=== PATIENT | female | born 1945 | race Caucasian/White ===

== ENCOUNTER 2017-05-28 07:12 | Outpatient (CLI) | payer MEDICARE | END 2017-05-28 07:13 | disposition home or self-care (01) | LOC: BICMAMMO 07:12 | PROVIDERS: ATTEND Internal Medicine | DX: Z12.31 Encounter for screening mammogram for malignant neoplasm of breast (principal) | CPT/HCPCS: 77063; G0202; 77067 ==

== ENCOUNTER 2018-05-29 09:36 | Outpatient (CLI) | payer MEDICARE | END 2018-05-29 09:37 | disposition home or self-care (01) | LOC: BICMAMMO 09:36 | PROVIDERS: ATTEND Internal Medicine | DX: Z12.31 Encounter for screening mammogram for malignant neoplasm of breast (principal); Z80.3 Family history of malignant neoplasm of breast | CPT/HCPCS: 77063; 77067 ==

== ENCOUNTER 2019-06-03 09:45 | Outpatient (CLI) | payer MEDICARE ==
--- NOTE | 2019-06-03 10:25 | MMO ---
Bilateral MAMMO Bilat Screen [facility]. CLINICAL HISTORY: Patient is 74 years old and is seen for screening. The patient has the following family history of breast cancer: maternal aunt. The patient has no personal history of cancer. VIEWS: The views performed were: bilateral craniocaudal with tomosynthesis and bilateral mediolateral oblique with tomosynthesis. FILMS COMPARED: The present examination has been compared to prior imaging studies performed at [facility] on 05/22/2015, 05/23/2016, 05/28/2017 and 05/29/2018. This study has been interpreted with the assistance of computer-aided detection. MAMMOGRAM FINDINGS: There are scattered fibroglandular densities. There are stable benign appearing calcifications seen in both breasts. There are no suspicious masses, suspicious calcifications, or new areas of architectural distortion. IMPRESSION: THERE IS NO MAMMOGRAPHIC EVIDENCE OF MALIGNANCY. A ROUTINE FOLLOW-UP MAMMOGRAM IN 1 YEAR IS RECOMMENDED. THE RESULTS OF THIS EXAM WERE SENT TO THE PATIENT. ACR BI-RADS Category 2 - Benign finding MAMMOGRAPHY NOTE: 1. A negative mammogram report should not delay a biopsy if a dominant of clinically suspicious mass is present. 2. Approximately 10% to 15% of breast cancers are not detected by mammography. 3. Adenosis and dense breasts may obscure an underlying neoplasm. Reported by: SUSHMA HARPER MD Electonically Signed: [id number]
== END 2019-06-03 09:46 | disposition home or self-care (01) ==
LOC: BICMAMMO 09:45
PROVIDERS: ATTEND Internal Medicine
DX: Z12.31 Encounter for screening mammogram for malignant neoplasm of breast (principal); Z80.3 Family history of malignant neoplasm of breast
CPT/HCPCS: 77063; 77067

== ENCOUNTER 2020-01-04 16:57 | Inpatient (IN) | payer MEDICARE, OTHER ==
[~2020-01-04 16:57] MED LIST: Iopamidol 370 76% 100 ML VIAL ONE
--- NOTE | 2020-01-04 17:45 | RAD ---
Exam: Chest one view HISTORY:Back pain Comparison: None FINDINGS: Cardiac silhouette: Normal Aorta: Unremarkable Pulmonary vessels: Normal Costophrenic angles: Clear LUNGS: No masses or consolidation. Pneumothorax: None Osseous abnormalities: None IMPRESSION: No acute cardiopulmonary process.
[2020-01-04 18:12] LABS: #Lymphocytes 1.3 thou/uL (1.20-3.40); #Monocytes 0.6 thou/uL (0.11-0.59); #Neutrophils 10.1 thou/uL (1.40-6.50); %Basophils 0.1 % (0.0-1.0); %Eosinophils 0.3 % (0.0-10.0); %Monocytes 5.2 % (0.0-10.0); %Neutrophils 83.5 % (42.0-75.0); Hemoglobin 12.8 g/dL (12.0-16.0); Mean Corpuscular Hemoglobin 30.3 pg (27.0-31.0); Mean Corpuscular Volume 89.1 fL (78.0-98.0); Mean Platelet Volume 9.9 fL (7.4-10.4); Platelet Count 196 thou/uL (130-400); RBC Distribution Width 12.4 % (11.5-14.5); Red Blood Cell (RBC) Count 4.22 mill/uL (4.20-5.40); White Blood Cell (WBC) Count 12.1 thou/uL (4.8-10.8)
[2020-01-04 18:18] LABS: INR-International Normal Ratio 1.1; PTT 29.1 sec (22.9-36.1); Prothrombin Time 14.3 sec (12.0-14.7)
[2020-01-04 18:20] LABS: D-Dimer Test Less than 0.27 *mcg/mL (0.27-0.43)
--- NOTE | 2020-01-04 18:33 | CT ---
CT ANGIO OF CHEST AND ABDOMEN PERFORMED WITH INTRAVENOUS CONTRAST ENHANCEMENT WITH 3D RECONSTRUCTIONS : 01/04/20 HISTORY: Chest and back pain. New murmur. This was done per the aortic dissection protocol. The lungs are clear of any infiltrative process. There is evidence for some air trapping. Motion present on this examination. The pulmonary arteries are fairly well opacified. I see no eviden ce for any central pulmonary embolus. The thoracic aorta is normal in caliber. There is no dissection . CT ANGIO OF ABDOMEN: There is some fatty change to the liver. Focal area of peripheral enhancement probably related to sma ll arteriovenous area of shunting in the right lobe. The spleen, pancreas and gallbladder regions mita ear unremarkable. Right and left adrenal glands and right and left kidneys are normal. No free fluid. No bowel wall fin dings. There are some diverticular changes. The appendix region appears unremarkable. The thoracic aorta is normal in caliber. No dissection. IMPRESSION: No evidence of aortic aneurysm or dissection. POS: [facility] [place]
[2020-01-04 18:34] LABS: ALT (SGPT) 31 U/L (8-55); AST (SGOT) 27 U/L (5-34); Alkaline Phosphatase 74 U/L (40-110); Anion Gap 18 mmol/L (10-20); BUN (Urea Nitrogen) 19 mg/dL (9.8-20.1); Bilirubin, Total 0.6 mg/dL (0.2-1.2); Calc. Creatinine Clearance 0 mL/min (70-130); Calcium 9.1 mg/dL (7.8-10.44); Carbon Dioxide 21 mmol/L (23-31); Chloride 99 mmol/L (98-107); Estimated GFR-MDRD 58; Globulin 1.9 g/dL (2.4-3.5); Glucose 227 mg/dL (83-110); Protein, Total 5.9 g/dL (6.0-8.3); Sodium 135 mmol/L (136-145)
[2020-01-04 19:28] LABS: Bilirubin Negative (Negative); Blood, Urine Trace (Negative); Clarity Clear (Clear); Glucose, Urine (Dipstick) Normal (Negative); Ketone, Urine 20 mg/dL (Negative); Leukocyte 75 Leu/uL (Negative); Nitrite Negative (Negative); Protein, Urine (Dipstick) 10 mg/dL (Neg-Trace); Squamous Epithelial 0-3 HPF (0-3); Urobilinogen Normal mg/dL (Less than 2); pH, Urine 5.5 (5.0-9.0)
[2020-01-04 19:38] LABS: Specific Gravity, Urine 1.053 (1.002-1.036)
[2020-01-04 19:39] LABS: Bacteria/HPF Rare-Few HPF (None Seen)
[2020-01-04] MEDS ORDERED: cefTRIAXone\\ROCEPHIN 2 GM VIAL ONE (20:20)
[2020-01-04] MEDS ORDERED: Potassium Chloride 20 MEQ TAB ONE ×2 (20:21→20:22)
[2020-01-04 21:12] LABS: Troponin I 0.033 ng/mL (< 0.028)
[2020-01-04 21:14] LABS: Lactic Acid 2.3 mmol/L (0.5-2.2)
[2020-01-04] MEDS ORDERED: Acetaminophen 325 MG TAB PO PRN (21:50)
[2020-01-04] MEDS ORDERED: Ondansetron PF 4 MG/2 ML Vial IVP PRN (21:51)
[2020-01-04] MEDS ORDERED: Promethazine HCl 12.5 MG in Sodium Chloride 0.9% 50 ML IVPB PRN (21:51)
[2020-01-04] MEDS ORDERED: Guaifenesin DM 100-10/5 ML UDCUP PO PRN (21:51)
[2020-01-04] MEDS ORDERED: HYDROcodone/Acetaminophen 5/325 mg Tablet PO PRN (21:51)
[2020-01-04] MEDS ORDERED: Bisacodyl 5 MG TAB PO PRN (21:52)
--- NOTE | 2020-01-04 21:57 | PDOC.HHP ---
Hospitalist HPI - History of Present Illness Palpitations History of Present Illness: Patient is a 74 year old female with PMH HTN, DM, anemia, HLD who presents to the ED with palpitations, back pain x 3 days. These symptoms have occurred mostly at night and have woken her up, she denies chest pain/orthopnea, PND, shortness of breath. She went to PCP office and was found to have sinus tachycardia. She denies history of cardiac disease or cardiac workup. In ED, lactic acid 4, lowered to 2 on rechec. TnI 0.33. Holosystolic murmur appreciated by ED. CTA chest without aortic dissection. UA suspicious for UTI. Patient was covid swabbed for sepsis screen. He recieved 325 asa. patient to be admitted for tachycardia and presumed UTI. Hospitalist ROS - Review of Systems Constitutional: denies: fever, chills, sweats, weakness, malaise, other Eyes: denies: pain, vision change, conjunctivae inflammation, eyelid inflammation, redness, other ENT: denies: ear pain, ear discharge, nose pain, nose discharge, nose congestion , mouth pain, mouth swelling, throat pain, throat swelling, other Respiratory: denies: cough, dry, shortness of breath, hemoptysis, SOB with excertion, pleuritic pain, sputum, wheezing, other Cardiovascular: reports: palpitations. denies: chest pain, orthopnea, paroxysmal noc. dyspnea, edema, light headedness, other Gastrointestinal: denies: nausea, vomiting, abdominal pain, diarrhea, constipation, melena, hematochezia, other Genitourinary: denies: dysuria, frequency, incontinence, hematuria, retention, other Musculoskeletal: denies: neck pain, shoulder pain, arm pain, back pain, hand pain, leg pain, foot pain, other Skin: denies: rash, lesions, timmy, bruising, other Neurological: denies: weakness, numbness, incoordination, change in speech, confusion, seizures, other All other systems reviewed; all pertinent +/- noted in HPI/Subj - Medication Medications: metFORMIN FriJan 04, 2020 18:05 CHAVEZ Valdez Hannah TABLET : Strength - 500 mg : ORAL Patient Dose: 1000 mg Oral 2 times a day. pioglitazone FriJan 04, 2020 18:05 CHAVEZ Valdez Hannah tablet : Strength - 15 mg : ORAL Patient Dose: 1 tab(s) Oral once a day. glimepiride FriJan 04, 2020 18:06 CHAVEZ Valdez Hannah tablet : Strength - 2 mg : ORAL Patient Dose: 1 tab(s) Oral once a day. lisinopril-hydrochlorothiazide FriJan 04, 2020 18:06 CHAVEZ Valdez Hannah tablet : Strength - 20 mg-12.5 mg : ORAL Patient Dose: 1 tab(s) Oral once a day. amLODIPine FriJan 04, 2020 18:07 CHAVEZ Valdez Hannah tablet : Strength - 5 mg : ORAL Patient Dose: 1 tab(s) Oral once a day. iron 325 mg (65 mg iron) tablet FriJan 04, 2020 18:07 CHAVEZ Valdez Hannah tablet : Strength - 325 mg (65 mg iron) : ORAL Patient Dose: 1 tab(s) Oral once a day. atorvastatin FriJan 04, 2020 18:08 CHAVEZ Valdez Hannah tablet : Strength - 20 mg : ORAL Patient Dose: 1 tab(s) Oral once a day. Citracal + D3 (calcium phos) FriJan 04, 2020 18:08 CHAVEZ Valdez Hannah tablet,chewable : Strength - 250 mg calcium-500 unit : ORAL Patient Dose: 1 tab(s) Oral once a day (in the morning). Centrum Silver Women FriJan 04, 2020 18:09 CHAVEZ Valdez Hannah tablet : Strength - 8 mg iron-400 mcg-300 mcg : ORAL Patient Dose: 1 tab(s) Oral once a day (in the morning). MegaRed Hmuhj-Encjp-9 FriJan 04, 2020 18:09 CHAVEZ Valdez Hannah capsule : Strength - 300 mg : ORAL Patient Dose: 1 cap(s) Oral once a day (in the evening). B Complex-Vitamin B12 FriJan 04, 2020 18:10 CHAVEZ Valdez Hannah tablet : ORAL Patient Dose: 1 tab(s) Oral once a day (in the morning). aspirin oral FriJan 04, 2020 18:10 CHAVEZ Valdez Hannah TABLET : Strength - 81 mg : ORAL Patient Dose: 81 mg Oral once a day. Hospitalist History - Past Medical History Other Medical History: HTN, DM, anemia, HLD - Past Surgical History Past Surgical History: reports: no pertinent history - Family History Family History: reports: no pertinent history - Social History Smoking Status: Never smoker Alcohol: reports: None - Exam General Appearance: NAD, awake alert Eye: PERRL, anicteric sclera ENT: normocephalic atraumatic, no oropharyngeal lesions, moist mucosa Neck: supple, symmetric, no JVD, no thyromegaly, no lymphadenopathy, no carotid bruit Heart: RRR, no gallops, no rubs, normal peripheral pulses, murmur present Heart - other findings: holosystolic murmur Respiratory: CTAB, no wheezes, no rales, no ronchi, normal chest expansion, no tachypnea, normal percussion Gastrointestinal: soft, non-tender, non-distended, normal bowel sounds, no palpable masses, no hepatomegaly, no splenomegaly, no bruit Extremities: no cyanosis, no clubbing, no edema Skin: normal turgor, no lesions, no rashes Neurological: cranial nerve grossly intact, normal sensation to touch, no weakness, no focal deficits, no new deficit Musculoskeletal: normal tone, normal strength, no muscle wasting Psychiatric: normal affect, normal behavior, A&O x 3 Hospitalist Results - Labs Result Diagrams: 01/04/20 18:01 01/04/20 18:01 Lab results: WBC 12.1 thou/uL (4.8-10.8) H 01/04/20 18:01 Hgb 12.8 g/dL (12.0-16.0) 01/04/20 18:01 Hct 37.6 % (36.0-47.0) 01/04/20 18:01 MCV 89.1 fL (78.0-98.0) 01/04/20 18:01 Plt Count 196 thou/uL (130-400) 01/04/20 18:01 Neutrophils % 83.5 % (42.0-75.0) H 01/04/20 18:01 Sodium 135 mmol/L (136-145) L 01/04/20 18:01 Potassium 3.0 mmol/L (3.5-5.1) L 01/04/20 18:01 Chloride 99 mmol/L (98-107) 01/04/20 18:01 Carbon Dioxide 21 mmol/L (23-31) L 01/04/20 18:01 BUN 19 mg/dL (9.8-20.1) 01/04/20 18:01 Creatinine 0.94 mg/dL (0.6-1.1) 01/04/20 18:01 Glucose 227 mg/dL (83-110) H 01/04/20 18:01 Lactic Acid 2.3 mmol/L (0.5-2.2) H 01/04/20 20:52 Calcium 9.1 mg/dL (7.8-10.44) 01/04/20 18:01 Total Bilirubin 0.6 mg/dL (0.2-1.2) 01/04/20 18:01 AST 27 U/L (5-34) 01/04/20 18:01 ALT 31 U/L (8-55) 01/04/20 18:01 Alkaline Phosphatase 74 U/L (40-110) 01/04/20 18:01 Troponin I 0.033 ng/mL (< 0.028) H 01/04/20 20:36 B-Natriuretic Peptide 43.7 pg/mL (0-100) 01/04/20 18:01 Serum Total Protein 5.9 g/dL (6.0-8.3) L 01/04/20 18:01 Albumin 4.0 g/dL (3.4-4.8) 01/04/20 18:01 Urine Ketones 20 mg/dL (Negative) A 01/04/20 18:52 Urine Blood Trace (Negative) A 01/04/20 18:52 Urine Nitrite Negative (Negative) 01/04/20 18:52 Ur Leukocyte Esterase 75 Dennis/uL (Negative) A 01/04/20 18:52 Urine RBC 4-6 HPF (0-3) A 01/04/20 18:52 Urine WBC 4-6 HPF (0-3) A 01/04/20 18:52 Ur Squamous Epith Cells 0-3 HPF (0-3) 01/04/20 18:52 Urine Bacteria Rare-Few HPF (None Seen) 01/04/20 18:52 Additional comment: VITAL SIGNS FriJan 04, 2020 21:00 CHAVEZ Valdez, Gillian BP: 180/84 MAP: 116 Pulse: 111 Resp: 10 O2 sat: 98 on (Room Air) Time: 01/04/2020 21:00. - EKG Interpretation EKG: sinus tachycardia, rate 125, RBBB, no dropped beats Hospitalist H&P A/P - Plan Plan: Patient is a 74 year old female with PMH HTN, DM, anemia, HLD who presents to the ED with palpitations, back pain x 3 days. # UTI with sepsis - admit to floor, trend lactic acid, hold IVF bolus due to HTN , start ceftriaxone, follow cultures # HTN - continue OSCAR/HCTZ, continue norvasc # sinus tachycardia - may be SVT or arrhtyhmia vs sinus tachycardia due to infection (UTI?) will treat UTI and provide PRN lebetalol and order echocardiogram and consult cardiology # HLD - continue statin, aspirin # DM - SSI, hold PO DM medications # hypokalemia - trend BMP, replete PRN, check Mg # DVT ppx # GI ppx Full code
[2020-01-04 22:55] VITALS: BMI 36.6
[2020-01-04] MEDS ORDERED: Sodium Chloride 0.9% 10 ML ONE (23:31)
[2020-01-04] MEDS: Labetalol HCl 100 MG/20 ML VIAL SLOW IVP PRN (23:37)
[2020-01-04] MEDS ORDERED: HumaLOG 300 UNITS/3 ML VIAL SC PRN (23:58)
[2020-01-04] MEDS ORDERED: Dextrose 5% in Water 1,000 ML IV PRN (23:58)
[2020-01-04] MEDS ORDERED: hydrALAZINE 20 MG/ML VIAL SLOW IVP PRN (23:58)
[2020-01-04] MEDS ORDERED: Dextrose 50% Abboject 50 ML SYRINGE SLOW IVP PRN (23:58)
[2020-01-05 00:14] LABS: Troponin I 0.039 ng/mL (< 0.028)
[2020-01-05] MEDS: Potassium Chloride 20 MEQ in Premix Bag 1 BAG IVPB SCH ×2 (01:12→03:20)
[2020-01-05 04:41] LABS: Anion Gap 13 mmol/L (10-20); BUN (Urea Nitrogen) 15 mg/dL (9.8-20.1); Calc. Creatinine Clearance 99 mL/min (70-130); Calcium 8.7 mg/dL (7.8-10.44); Carbon Dioxide 22 mmol/L (23-31); Chloride 105 mmol/L (98-107); Estimated GFR-MDRD 73; Glucose 216 mg/dL (83-110); Magnesium 1.6 mg/dL (1.6-2.6); Potassium 3.7 mmol/L (3.5-5.1); Sodium 136 mmol/L (136-145)
[2020-01-05 04:43] LABS: Troponin I 0.051 ng/mL (< 0.028)
[2020-01-05] MEDS: Famotidine 20 MG TAB PO SCH ×2 (07:27→21:39)
[2020-01-05] MEDS: Lisinopril/Hydrochlorothiazide 20 mg/12.5 mg Tablet PO SCH (07:27)
[2020-01-05] MEDS: Enoxaparin Sodium 40 MG/0.4 ML SYRINGE SC SCH (07:28)
[2020-01-05] MEDS: metFORMIN 500 MG TAB PO SCH ×5 (07:28→17:53)
[2020-01-05] MEDS: Polyethylene Glycol 3350 17 GM Packet PO SCH (07:28)
[2020-01-05] MEDS ORDERED: Amlodipine 5 MG TAB PO SCH ×4 (09:00→10:30)
[2020-01-05 10:25] LABS: Troponin I 0.038 ng/mL (< 0.028)
--- NOTE | 2020-01-05 10:38 | CON ---
DATE OF CONSULTATION: HISTORY OF PRESENT ILLNESS: Roma Connor is a 74-year-old woman, who presents for evaluation of back discomfort and palpitations. The patient states approximately 4 days ago she started having palpitations. The patient subsequently developed midback, lower back discomfort. The patient went to see her physician, noted to be markedly tachycardic. She was sent to the emergency room for further evaluation. The patient denies having any chest pain or dyspnea. She denies having any fevers or chills. The patient has several cardiac risk factors including diabetes mellitus, hypertension, hypercholesteremia, and a family history of coronary artery disease. PAST MEDICAL HISTORY: 1. Diabetes mellitus. 2. Hypertension. 3. Dyslipidemia. 4. Elevated liver function tests. PAST SURGICAL HISTORY: Cataract surgery. SOCIAL HISTORY: Nonsmoker. MEDICATIONS: 1. Amlodipine 5 daily. 2. Lipitor 20 at bedtime. 3. Aspirin 81 daily. 4. Actos 15 daily. 5. Lisinopril/HCTZ 20/12.5 daily. 6. Amaryl 2 daily. ALLERGIES: NO KNOWN DRUG ALLERGIES. FAMILY HISTORY: No strong family history of heart disease. REVIEW OF SYSTEMS: Ten-point system is otherwise unremarkable. No history of easy bruising or bleeding or bright-red blood per rectum. PHYSICAL EXAMINATION: GENERAL: Obese woman, in no acute distress. VITAL SIGNS: Blood pressure 155/72. NECK: No jugular venous distention. LUNGS: Clear to auscultation. HEART: Regular rate and rhythm. Normal S1, S2 with a 2/6 systolic murmur. ABDOMEN: Distended. EXTREMITIES: No edema. VASCULAR: Radial pulses 2+. LABORATORY DATA: Sodium 136, potassium 3.7, chloride 105, bicarbonate 22, BUN 15, creatinine 0.77, glucose 216. Troponin 0.051. White blood cell count is 12.1, hemoglobin 12.8, hematocrit 37.6, platelets 196. INR was 1.1. EKG sinus tachycardia with a right bundle-branch block. IMPRESSION: 1. Sinus tachycardia. 2. Right bundle-branch block. 3. Hypertension. 4. Diabetes mellitus. 5. Dyslipidemia. 6. Obesity. 7. Urinary tract infection. PLAN: This patient presents with sinus tachycardia, back discomfort, and urinary tract infection. The patient's heart rate is much slower since she has been admitted to the hospital and been on IV antibiotics. From a cardiac standpoint , we will check the patient's echocardiogram. She had a CT scan, which ruled out aortic dissection or central pulmonary embolus. We will follow this patient with you through her hospitalization. Job ID: [id number] WALTER
[2020-01-05 12:01] LABS: SARS-CoV-2 MS2 Positive; SARS-CoV-2 N Gene Negative; SARS-CoV-2 S Gene Negative; SARS-CoV-2 by NAA Not Detected (NotDetected); SARS-CoV-2 orf1ab Negative
--- NOTE | 2020-01-05 17:26 | PDOC.HOSPP ---
- Subjective Encounter Date: 01/05/20 Encounter Time: 10:00 Subjective: Patient was seen for follow-up for sepsis. She reports feeling better. She reports occasional palpitations. She denies any nausea or vomiting. - Objective Vital Signs & Weight: Vital Signs (12 hours) Temp Pulse Resp BP Pulse Ox 01/05/20 11:17 78 01/05/20 11:06 98.4 F 78 12 162/75 H 98 01/05/20 07:19 98.2 F 80 17 155/72 H 98 Weight Weight 213 lb 6.4 oz I&O: 01/04/20 01/05/20 01/06/20 06:59 06:59 06:59 Intake Total 500 Output Total 1300 Balance -800 Result Diagrams: 01/04/20 18:01 01/05/20 04:05 Additional Labs: Accuchecks 01/05/20 01/05/20 01/04/20 11:03 05:58 22:28 POC Glucose 169 H 198 H 207 H Labs and MAR were reviewed by me. EKG Reviewed by me: Yes (Telemetry: Normal sinus rhythm) Hospitalist ROS - Review of Systems Respiratory: denies: cough, shortness of breath, SOB with excertion, pleuritic pain, wheezing Cardiovascular: denies: chest pain, palpitations, orthopnea, paroxysmal noc. dyspnea, edema, light headedness - Medication Medications: Active Medications Generic Name Dose Route Start Last Admin Trade Name Freq PRN Reason Stop Dose Admin Enoxaparin Sodium 40 mg 01/05/20 09:00 01/05/20 07:28 Lovenox SC 40 mg 0900 IVANA Administration Famotidine 20 mg 01/05/20 09:00 01/05/20 07:27 Pepcid PO 20 mg BID IVANA Administration Lisinopril/HCTZ 1 tab 01/05/20 09:00 01/05/20 07:27 Prinizide 20-12.5 PO 1 tab DAILY IVANA Administration Labetalol HCl 20 mg 01/04/20 21:50 01/04/20 23:37 Normodyne SLOW IVP 20 mg Q4H PRN Administration SBP GREATER THAN 160 Metformin HCl 1,000 mg 01/05/20 08:00 01/05/20 11:11 Glucophage PO 1,000 mg BID-WM IVANA Administration Polyethylene Glycol 17 gm 01/05/20 09:00 01/05/20 07:28 Miralax PO Not Given DAILY IVANA Sodium Chloride 10 ml 01/04/20 22:01 01/04/20 23:38 Flush - Normal Saline IVF 10 ml PRN PRN Administration Saline Flush - Exam General Appearance: awake alert Eye: anicteric sclera ENT: no oropharyngeal lesions Neck: supple Heart: RRR Respiratory: CTAB, no rales Gastrointestinal: soft, non-tender Extremities: no cyanosis Psychiatric: normal affect, normal behavior Hosp A/P - Plan #sepsis -patient is clinically improving # UTI -continue ceftriaxone and follow urine culture # HTN -monitor vital signs and titrate antihypertensives as needed # sinus tachycardia -Improved, likely due to sepsis. Appreciate cardiology service input. 2D echocardiogram pending. # HLD - continue statin # DM -continue Accu-Cheks and insulin sliding scale. # hypokalemia -resolved.
[2020-01-05] MEDS: Labetalol HCl 100 MG/20 ML VIAL SLOW IVP PRN (17:47)
[2020-01-05] MEDS ORDERED: Atorvastatin Calcium 20 MG TAB PO SCH (21:00)
[2020-01-05] MEDS ORDERED: Aspirin 81 mg Enteric Coated Tablet PO SCH (21:00)
[2020-01-05] MEDS ORDERED: cefTRIAXone\\ROCEPHIN 1 GM in Sodium Chloride 0.9% 100 ML IVPB SCH (22:00)
[2020-01-06 05:10] LABS: Anion Gap 12 mmol/L (10-20); BUN (Urea Nitrogen) 12 mg/dL (9.8-20.1); Calc. Creatinine Clearance 103 mL/min (70-130); Calcium 8.7 mg/dL (7.8-10.44); Carbon Dioxide 26 mmol/L (23-31); Chloride 105 mmol/L (98-107); Estimated GFR-MDRD 77; Glucose 160 mg/dL (83-110); Magnesium 1.6 mg/dL (1.6-2.6); Sodium 139 mmol/L (136-145)
[2020-01-06] MEDS ORDERED: Amlodipine 5 MG TAB PO SCH (09:00)
[2020-01-06 09:31] VITALS: TEMP 97.9
[2020-01-06] MEDS: metFORMIN 500 MG TAB PO SCH (09:32)
[2020-01-06] MEDS: Lisinopril/Hydrochlorothiazide 20 mg/12.5 mg Tablet PO SCH (09:33)
[2020-01-06] MEDS: Famotidine 20 MG TAB PO SCH (09:33)
[2020-01-06] MEDS: Polyethylene Glycol 3350 17 GM Packet PO SCH (09:34)
[2020-01-06] MEDS: Enoxaparin Sodium 40 MG/0.4 ML SYRINGE SC SCH (09:34)
[2020-01-06] MEDS ORDERED: Cefdinir 300 MG CAP PO SCH ×2 (09:45→21:00)
--- NOTE | 2020-01-06 11:14 | DIS ---
DATE OF ADMISSION: 01/04/2020 DATE OF DISCHARGE: 01/06/2020 PRIMARY CARE PROVIDER: Otto Loyola MD DISCHARGE DIAGNOSES: 1. Sepsis secondary to urinary tract infection. 2. COVID-19 test negative. 3. Sinus tachycardia. 4. Hypokalemia. 5. [id number]-[id number] elevation myocardial infarction, type 2. CONDITION OF THE PATIENT ON THE DAY OF DISCHARGE: Stable. I assessed Ms. Connor on the day of discharge. She denies any chest pain or shortness of breath. Vital signs are stable. S1 and S2 are heard, regular. Lungs are clear to auscultation bilaterally. CONSULTATIONS DURING THIS HOSPITALIZATION: Cardiology, Dr. Aly. DISCHARGE MEDICATIONS: She has been started on cefdinir 300 mg 2 times a day for 7 more days. Otherwise, no change was made to her pre-admission home medications. HOSPITAL COURSE: Ms. Connor is a pleasant 74-year-old lady who was admitted to [facility] for sepsis secondary to urinary tract infection. She also had elevated troponin. She was seen by Cardiology Service. She also had 2D echocardiogram which showed left ventricular ejection fraction of 60% to 65%, mildly dilated left atrium, normal left ventricular size, mild concentric left ventricular hypertrophy, impaired relaxation compatible with diastolic dysfunction, mild mitral regurgitation, and mild tricuspid regurgitation. She improved clinically. At the time of this dictation, preliminary urine culture was young culture, further incubation required. Preliminary blood cultures are negative. She has been advised to follow up with her primary care provider for final urine and blood culture reports. POST-ACUTE CARE FOLLOWUP: With primary care provider in 3 days and with Cardiology Service. ACTIVITY: No restrictions. DIET: Diabetic and heart healthy. DISCHARGE DESTINATION: Home. TIME SPENT: Total amount of time spent coordinating this discharge: 25 minutes. Job ID: [id number]
[2020-01-06 12:19] VITALS: BP 147/76
== END 2020-01-06 12:50 | disposition home or self-care (01) | DRG 871 ==
LOC: ERS 16:57 → 2NO 20:54
PROVIDERS: ADMIT Internal Medicine; ATTEND Internal Medicine
DX: A41.9 Sepsis, unspecified organism (principal); I21.A1 Myocardial infarction type 2; N39.0 Urinary tract infection, site not specified; Z20.828 Contact with and (suspected) exposure to other viral communicable diseases; E87.6 Hypokalemia; R00.0 Tachycardia, unspecified; I08.1 Rheumatic disorders of both mitral and tricuspid valves; E78.5 Hyperlipidemia, unspecified; E78.00 Pure hypercholesterolemia, unspecified; D64.9 Anemia, unspecified; E11.9 Type 2 diabetes mellitus without complications; E66.9 Obesity, unspecified; I10 Essential (primary) hypertension; I45.10 Unspecified right bundle-branch block; Z98.42 Cataract extraction status, left eye; Z98.41 Cataract extraction status, right eye; Z79.4 Long term (current) use of insulin; Z68.31 Body mass index [BMI] 31.0-31.9, adult
CPT/HCPCS: 36415; 36416; 71045; 71275; 72191; 74175; 80048; 80053; 81003; 81015; 83605; 83735; 83880; 84443; 84484; 85025; 85379; 85610; 85730; 87086; 87635; 93005; 93306; 94760; J0696; J1650; J3480; J3490; Q9967; U0003

== ENCOUNTER 2020-01-10 13:40 | Emergency (ER) | payer MEDICARE ==
--- NOTE | 2020-01-10 14:52 | RAD ---
EXAM: CHEST ONE VIEW HISTORY: Rapid heart rate and high blood pressure for one week. COMPARISON: 12/27/2019 FINDINGS: The cardiac silhouette and pulmonary vasculature is within normal limits. The lungs are clear. The os seous structures are intact. Vascular calcifications are seen in the aortic arch. IMPRESSION: No acute cardiopulmonary process.
[2020-01-10 15:40] LABS: #Basophils 0.1 thou/uL (0.0-0.2); #Eosinphils 0.1 thou/uL (0.0-0.7); #Lymphocytes 1.6 thou/uL (1.20-3.40); #Monocytes 0.6 thou/uL (0.11-0.59); %Basophils 0.6 % (0.0-1.0); %Eosinophils 1.1 % (0.0-10.0); %Lymphocytes 15.2 % (21.0-51.0); %Neutrophils 77.2 % (42.0-75.0); Hemoglobin 13.3 g/dL (12.0-16.0); Mean Corpuscular HGB CONC 33.5 g/dL (32.0-36.0); Mean Corpuscular Hemoglobin 30.1 pg (27.0-31.0); Mean Corpuscular Volume 89.8 fL (78.0-98.0); Mean Platelet Volume 9.4 fL (7.4-10.4); Platelet Count 213 thou/uL (130-400); RBC Distribution Width 12.5 % (11.5-14.5); Red Blood Cell (RBC) Count 4.42 mill/uL (4.20-5.40); White Blood Cell (WBC) Count 10.3 thou/uL (4.8-10.8)
[2020-01-10 16:02] LABS: ALT (SGPT) 39 U/L (8-55); AST (SGOT) 32 U/L (5-34); Albumin 4.5 g/dL (3.4-4.8); Alkaline Phosphatase 78 U/L (40-110); Anion Gap 17 mmol/L (10-20); BUN (Urea Nitrogen) 17 mg/dL (9.8-20.1); Bilirubin, Total 0.8 mg/dL (0.2-1.2); Calc. Creatinine Clearance 0 mL/min (70-130); Calcium 9.3 mg/dL (7.8-10.44); Carbon Dioxide 22 mmol/L (23-31); Chloride 102 mmol/L (98-107); Estimated GFR-MDRD 66; Glucose 174 mg/dL (83-110); Lipase 39 U/L (8-78); Magnesium 1.7 mg/dL (1.6-2.6); Potassium 3.7 mmol/L (3.5-5.1); Protein, Total 6.5 g/dL (6.0-8.3); Sodium 137 mmol/L (136-145)
[2020-01-10] MEDS ORDERED: Lorazepam 2 MG/ML VIAL ONE (16:38)
[2020-01-10 16:51] LABS: Bacteria/HPF None Seen HPF (None Seen); Bilirubin Negative (Negative); Blood, Urine 1+ (Negative); Clarity Clear (Clear); Glucose, Urine (Dipstick) Normal (Negative); Ketone, Urine Trace mg/dL (Negative); Leukocyte Negative Leu/uL (Negative); Nitrite Negative (Negative); Protein, Urine (Dipstick) Negative (Neg-Trace); Specific Gravity, Urine 1.013 (1.002-1.036); Squamous Epithelial None Seen HPF (0-3); Urobilinogen Normal mg/dL (Less than 2); WBC/HPF None Seen HPF (0-3); pH, Urine 5.5 (5.0-9.0)
[2020-01-10 19:22] LABS: Lactic Acid 1.3 mmol/L (0.5-2.2)
== END 2020-01-10 19:28 | disposition home or self-care (01) ==
LOC: ERS 13:40
DX: R00.0 Tachycardia, unspecified (principal); E11.9 Type 2 diabetes mellitus without complications; I10 Essential (primary) hypertension; D64.9 Anemia, unspecified; E78.5 Hyperlipidemia, unspecified; Z79.84 Long term (current) use of oral hypoglycemic drugs; Z79.899 Other long term (current) drug therapy
CPT/HCPCS: 36415; 71045; 80053; 81003; 81015; 83605; 83690; 83735; 84443; 84484; 85025; 85379; 93005; 96374; J2060

== ENCOUNTER 2020-06-05 07:50 | Outpatient (CLI) | payer MEDICARE ==
--- NOTE | 2020-06-05 09:01 | MMO ---
Bilateral MAMMO Bilat Screen [facility]. CLINICAL HISTORY: Patient is 75 years old and is seen for screening. The patient has the following family history of breast cancer: maternal aunt. The patient has no personal history of cancer. VIEWS: The views performed were: bilateral craniocaudal with tomosynthesis and bilateral mediolateral oblique with tomosynthesis. FILMS COMPARED: The present examination has been compared to prior imaging studies performed at [facility] on 05/23/2016, 05/28/2017, 05/29/2018 and 06/03/2019. This study has been interpreted with the assistance of computer-aided detection. MAMMOGRAM FINDINGS: There are scattered fibroglandular densities. Benign calcifications are noted bilaterally. There are no suspicious masses, suspicious calcifications, or new areas of architectural distortion. IMPRESSION: THERE IS NO MAMMOGRAPHIC EVIDENCE OF MALIGNANCY. A ROUTINE FOLLOW-UP MAMMOGRAM IN 1 YEAR IS RECOMMENDED. THE RESULTS OF THIS EXAM WERE SENT TO THE PATIENT. ACR BI-RADS Category 2 - Benign finding MAMMOGRAPHY NOTE: 1. A negative mammogram report should not delay a biopsy if a dominant of clinically suspicious mass is present. 2. Approximately 10% to 15% of breast cancers are not detected by mammography. 3. Adenosis and dense breasts may obscure an underlying neoplasm. Reported by: ANUM LOPEZ MD Electonically Signed: [id number]
== END 2020-06-05 07:51 | disposition home or self-care (01) ==
LOC: BICMAMMO 07:50
PROVIDERS: ATTEND Internal Medicine
DX: Z12.31 Encounter for screening mammogram for malignant neoplasm of breast (principal); Z80.3 Family history of malignant neoplasm of breast
CPT/HCPCS: 77063; 77067

== ENCOUNTER 2021-06-07 08:32 | Outpatient (CLI) | payer MEDICARE | END 2021-06-07 08:33 | disposition home or self-care (01) | LOC: BICMAMMO 08:32 | PROVIDERS: ATTEND Internal Medicine | DX: Z12.31 Encounter for screening mammogram for malignant neoplasm of breast (principal); Z80.3 Family history of malignant neoplasm of breast | CPT/HCPCS: 77063; 77067 ==

== ENCOUNTER 2022-01-14 15:42 | Outpatient (CLI) | payer MEDICARE | END 2022-01-14 15:43 | disposition home or self-care (01) | LOC: BICRAD 15:42 | PROVIDERS: ATTEND Internal Medicine | DX: M25.562 Pain in left knee (principal); M25.762 Osteophyte, left knee ==

== ENCOUNTER 2022-06-26 11:19 | Outpatient (CLI) | payer MEDICARE | END 2022-06-26 11:20 | disposition home or self-care (01) | LOC: BICMAMMO 11:19 | PROVIDERS: ATTEND Internal Medicine | DX: Z12.31 Encounter for screening mammogram for malignant neoplasm of breast (principal); Z80.3 Family history of malignant neoplasm of breast | CPT/HCPCS: 77063; 77067 ==

== ENCOUNTER 2023-07-04 03:44 | Emergency (ER) | payer MEDICARE ==
[2023-07-04 04:33] LABS: #Basophils 0.1 thou/uL (0.0-0.2); #Eosinphils 0.2 thou/uL (0.0-0.7); #Monocytes 0.4 thou/uL (0.11-0.59); #Neutrophils 6.4 thou/uL (1.40-6.50); %Basophils 0.6 % (0.0-1.0); %Eosinophils 2.3 % (0.0-10.0); %Lymphocytes 19.4 % (21.0-51.0); %Monocytes 4.9 % (0.0-10.0); %Neutrophils 72.5 % (42.0-75.0); Hematocrit 38.6 % (36.0-47.0); Hemoglobin 13.3 g/dL (12.0-16.0); Mean Corpuscular HGB CONC 34.5 g/dL (32.0-36.0); Mean Corpuscular Hemoglobin 29.8 pg (27.0-31.0); Mean Corpuscular Volume 86.4 fl (78.0-98.0); Mean Platelet Volume 11.5 fL (7.4-10.4); Platelet Count 214 10x3/uL (130-400); RBC Distribution Width 13.3 % (11.5-14.5); Red Blood Cell (RBC) Count 4.47 mill/uL (4.20-5.40); White Blood Cell (WBC) Count 8.8 10x3/uL (4.8-10.8)
[2023-07-04 05:00] LABS: ALT (SGPT) 19 U/L (8-55); AST (SGOT) 23 U/L (5-34); Albumin 4.4 g/dL (3.4-4.8); Alkaline Phosphatase 66 U/L (40-110); Anion Gap 14 mmol/L (10-20); BUN (Urea Nitrogen) 14 mg/dL (9.8-20.1); Calc. Creatinine Clearance 0 mL/min (70-130); Calcium 9.4 mg/dL (7.8-10.44); Carbon Dioxide 26 mmol/L (23-31); Chloride 100 mmol/L (98-107); Estimated GFR 81; Globulin 2.1 g/dL (2.4-3.5); Glucose 192 mg/dL (83-110); Potassium 2.9 mmol/L (3.5-5.1); Protein, Total 6.5 g/dL (5.8-8.1); Sodium 137 mmol/L (136-145)
[2023-07-04 05:03] LABS: Troponin I Less than 0.010 ng/mL (< 0.028)
[2023-07-04] MEDS ORDERED: Acetaminophen 325 MG TAB ONE (05:44)
[2023-07-04] MEDS ORDERED: Potassium Chloride 20 MEQ TAB ONE (05:44)
[2023-07-04 06:34] LABS: Magnesium 1.6 mg/dL (1.6-2.6)
[2023-07-04] MEDS ORDERED: Iopamidol 370 76% 100 ML VIAL ONE (11:46)
== END 2023-07-04 07:04 | disposition home or self-care (01) ==
LOC: ERS 03:44
DX: M54.6 Pain in thoracic spine (principal); I10 Essential (primary) hypertension; E87.6 Hypokalemia; E11.9 Type 2 diabetes mellitus without complications; Z79.899 Other long term (current) drug therapy; Z79.82 Long term (current) use of aspirin
CPT/HCPCS: 36415; 71045; 71275; 74174; 80053; 83690; 83735; 84484; 85025; 93005; 94760

== ENCOUNTER 2023-07-14 09:31 | Outpatient (CLI) | payer MEDICARE | END 2023-07-14 09:32 | disposition home or self-care (01) | LOC: BICMAMMO 09:31 | PROVIDERS: ATTEND Internal Medicine | DX: Z12.31 Encounter for screening mammogram for malignant neoplasm of breast (principal); Z80.3 Family history of malignant neoplasm of breast | CPT/HCPCS: 77063; 77067 ==

== ENCOUNTER 2023-12-04 09:42 | Outpatient (CLI) | payer MEDICARE | END 2023-12-04 09:43 | disposition home or self-care (01) | LOC: BICMAMMO 09:42 | PROVIDERS: ATTEND Internal Medicine | DX: N63.15 Unspecified lump in the right breast, overlapping quadrants (principal) | CPT/HCPCS: 76642; 77065; G0279 ==